=== PATIENT | male | born 1940 | race Caucasian/White ===

== ENCOUNTER 2016-08-05 09:49 | Inpatient (IN) | payer MEDICARE, OTHER ==
[~2016-08-05] VITALS: Ht 172.7 cm; Wt 99.8 kg
--- NOTE | 2016-08-05 10:19 | NUR ---
BIB FOR RECTAL PAIN, PATIENT WAS ON CHEMO 4 WEEKS PRIOR TO ARRIVAL, PATIENT IS VERBALLY RESPONSIVE, DENIES BLEEDING, ABLE TO AMBULATE TO BED, PLACED ON MONITOR, MD AT BEDSIDE UPON ARRIVAL, WILL CONTINUE TO MONITOR CLOSELY.
--- NOTE | 2016-08-05 10:27 | NUR ---
RAC #20 IV ACCESS BLOOD SAMPLE COLLECTED SENT TO LAB
[2016-08-05] MEDS ORDERED: CEFTRIAXONE 1GM BAG (ER ONLY) 50 ML IV ONE (10:28)
[2016-08-05] MEDS ORDERED: IV SET PRIMARY PUMP SET 1 EA INFUS.SET MC ONE ×2 (10:28→14:36)
[2016-08-05] MEDS ORDERED: ONDANSETRON HCL/PF 4 MG/2 ML VIAL ONE (10:28)
[2016-08-05] MEDS ORDERED: MORPHINE SULFATE INJ 4 MG/ML DISP.SYRIN ONE (10:28)
[2016-08-05] MEDS ORDERED: IV NS 0.9% 1,000 ML ONE ×2 (10:28→17:07)
[2016-08-05] MEDS ORDERED: ONDANSETRON HCL/PF 4 MG/2 ML VIAL IVP ONE (10:30)
[2016-08-05] MEDS ORDERED: IV NS 0.9% 1,000 ML BAG IV ONE (10:30)
[2016-08-05] MEDS ORDERED: MORPHINE SULFATE INJ 2 MG/ML DISP.SYRIN IV ONE (10:30)
[2016-08-05] MEDS ORDERED: CEFTRIAXONE 1GM BAG (ER ONLY) 1 GM/50 ML PIGGYBACK IV ONE (10:30)
[2016-08-05 10:37] LABS: CALCIUM, SERUM 8.2 mg/dL (8.5-10.1); CREATININE 1.1 mg/dL (0.6-1.3); POTASSIUM 3.9 mmol/L (3.5-5.1)
[2016-08-05 10:41] LABS: INR 1.1 (0.87-1.13); PROTHROMBIN TIME 11.5 SECS (9.5-12.7)
[2016-08-05 10:42] LABS: BASOPHILS % (AUTO) 0.2 % (0.0-2.0); LYMPHOCYTES # (AUTO) 0.5 /CMM (0.8-4.8); MEAN CORPUSCULAR HEMOGLOBIN 30 PG (26.0-33.0); RED BLOOD CELL COUNT(AUTO) 2.12 MIL/uL (4.5-6.0)
[2016-08-05 10:44] LABS: LYMPHOCYTES % (AUTO) 54.5 % (20.0-44.0); MEAN CORPUSCULAR HGB CONC 34 g/dl (31.0-36.0); MEAN CORPUSCULAR VOLUME 89 fL (80-96); MONOCYTES % (AUTO) 4.4 % (2.0-12.0); NEUTROPHILS # (AUTO) 0.4 /CMM (1.8-8.9); NEUTROPHILS % (AUTO) 40.9 % (43.0-81.0); PLATELET COUNT (AUTO) 103 /CMM (150-450); RDW COEFFICIENT OF VARIATION 16.4 (11.5-15.0)
--- NOTE | 2016-08-05 10:44 | NUR ---
CALLED PHARMACY FOR VANCO IV MEDS
--- NOTE | 2016-08-05 10:44 | NUR ---
XRAY AT BEDSIDE
[2016-08-05 10:49] LABS: HEMATOCRIT 19 % (39-51); HEMOGLOBIN 6.4 g/dL (13.5-17.5); WHITE BLOOD COUNT (AUTO) 0.9 K/uL (4.3-11.0)
--- NOTE | 2016-08-05 10:50 | NUR ---
URINE SAMPLE COLLECTED SENT TO LAB
[2016-08-05 10:54] LABS: APPEARANCE,URINE Clear (CLEAR); BILIRUBIN,URINE MODERATE (NEGATIVE); BLOOD, URINE Negative Ery/uL (NEGATIVE); COLOR,URINE Amber (YELLOW); KETONES,URINE Trace (NEGATIVE); LEUKOCYTE ESTERASE ,URINE Trace (NEGATIVE); NITRITE, URINE Positive (NEGATIVE); PH,URINE 5.5 (5.0-8.0); PROTEIN,URINE 100 mg/dl (NEGATIVE); UGLUCOSE Negative (NEGATIVE)
[2016-08-05 11:09] LABS: LYMPHOCYTES % (MANUAL) 51 % (16-48); MONOCYTES % (MANUAL) 4 % (0-11.0); NEUTROPHILS % (MANUAL) 45 (42-76); PLATELET ESTIMATE DECREASED
[2016-08-05 11:10] LABS: ADD URINE CULTURE NO; BACTERIA,URINE 1+ /HPF (None Seen); RBC,URINE 0-2 /HPF (0-2); SQUAMOUS EPITHELIAL CELL,UR Rare /HPF (None Seen)
[2016-08-05] MEDS ORDERED: FEE PK DOSING 1 MIN EA MC ONE ×2 (11:12→13:51)
[2016-08-05] MEDS ORDERED: VANCOMYCIN 1 GM in IV D5W 250 ML IV ONE (11:30)
[2016-08-05] MEDS ORDERED: VANCOMYCIN 1 GM in IV D5W 250 ML IV SCH ×2 (11:30→23:00)
--- NOTE | 2016-08-05 11:49 | NUR ---
DUPLICATE ORDER ON KELLYO
[2016-08-05] MEDS ORDERED: DEFEROXAMINE IV ONE (12:00)
[2016-08-05] MEDS ORDERED: FILGRASTIM (300 MCG) 300 MCG/ML VIAL SQ ONE (12:00)
[2016-08-05] MEDS ORDERED: D5W IV ONE (12:00)
--- NOTE | 2016-08-05 12:00 | NUR ---
PAGED DR CALLAHAN RAMP MANAGER PANEL.
--- NOTE | 2016-08-05 12:05 | NUR ---
CALLED NURSING DAIRY MANAGER REQUESTING RORY BED PER DR LEBLANC
[2016-08-05] MEDS ORDERED: FESO8TAB PO (12:30)
[2016-08-05] MEDS ORDERED: MORPHINE SULFATE INJ 2 MG/ML DISP.SYRIN IV PRN (12:30)
[2016-08-05] MEDS ORDERED: Z GUARD REMEDY 2 OZ OINT TP PRN (12:30)
[2016-08-05] MEDS ORDERED: CALC500T3 PO (12:30)
[2016-08-05] MEDS ORDERED: MAG HYDROX/AL HYDROX/SIMETH 30 ML UDC PO PRN (12:30)
[2016-08-05] MEDS ORDERED: MAGNESIUM HYDROXIDE 30 ML UDC PO PRN (12:30)
[2016-08-05] MEDS ORDERED: ZOLPIDEM TARTRATE 5 MG TABLET PO PRN (12:30)
[2016-08-05] MEDS ORDERED: CELE200C PO (12:30)
[2016-08-05] MEDS ORDERED: TEMA30CA PO (12:30)
[2016-08-05] MEDS ORDERED: OLOP2.5D5 EACHEYE (12:30)
[2016-08-05] MEDS ORDERED: ONDA8TAB6 PO (12:30)
[2016-08-05] MEDS ORDERED: OMEP20TA68 PO (12:30)
[2016-08-05] MEDS ORDERED: ACET-2605 PO (12:30)
[2016-08-05] MEDS ORDERED: ALEN70TA3 PO (12:30)
[2016-08-05] MEDS ORDERED: ONDANSETRON HCL/PF 4 MG/2 ML VIAL IVP PRN (12:30)
[2016-08-05] MEDS ORDERED: MONT10TA22 PO (12:30)
[2016-08-05] MEDS ORDERED: DOCU250C75 PO (12:30)
--- NOTE | 2016-08-05 13:14 | NUR ---
REPORT GIVEN TO THONY CHAVEZ RORY BED 108
[2016-08-05] MEDS ORDERED: CEFEPIME 1 GM in IV D5W 50 ML IV SCH (13:30)
[2016-08-05] MEDS ORDERED: SECONDARY IV SET 1 EA INFUS.SET MC ONE (14:36)
[2016-08-05] MEDS ORDERED: IV NS 0.9% 250 ML IV ONE ×2 (14:36→22:32)
[2016-08-05] MEDS: TBO-FILGRASTIM 480 MCG/0.8 ML ML SQ SCH (14:41)
[2016-08-05] MEDS: CEFEPIME 2 GM in IV D5W 100 ML IV SCH ×2 (14:42→20:25)
--- NOTE | 2016-08-05 15:00 | NUR ---
RN NOTES REMINDED TO BRING HOME MEDS AND EYE DROPS
[2016-08-05] MEDS: ENOXAPARIN SODIUM 40 MG/0.4 ML DISP.SYRIN SQ SCH (15:16)
--- NOTE | 2016-08-05 15:19 | NUR ---
RN NOTES ADMITTED A 75Y/O M FROM ER. TRANSPOPRTED VIA SRETCHER ACCOMPANIED BY RN. PT IS AWAKE ALERT ORIENTED X3 , URDU SPEAKING. TELEBOX ATTACHED, SR HR 71 THUM[address] AV BLOCK. NOTED SR ON TELE MONITOR. VS CHECKED AND RECORDED. BODY CHECK DONE, NO MAJOR SKIN ISSUES NOTED. DENIES PAIN/DISCOMFORT AT THIS TIME. AT BEDSIDE. ORIENTED TO UNIT AND CALL LIGHT USE, SAFETY MAINTAINED. NEEDS ATTENDED, CALL LIGHT WITHIN REACH
--- NOTE | 2016-08-05 15:24 | NUR ---
RN NOTES SPOKE WITH DR CALLAHAN, REPORTED PT HEMOGLOBIN 6.4, PER MD GIVE 2UNITS PRBC. DR WILHELM AWARE.
[2016-08-05 16:00] VITALS: BP 123/43
[2016-08-05] MEDS: CALCIUM CARBONATE (1250) 500 MG TABLET PO SCH (17:03)
[2016-08-05] MEDS: IV NS 0.9% 1,000 ML IV PRN (17:13)
--- NOTE | 2016-08-05 17:49 | NUR ---
RN NOTES CALLED THE BLOOD BANK TO FOLLOW UP, SECOND ABO TEST STILL NEEDS TO BE VERIFIED.
--- NOTE | 2016-08-05 19:25 | NUR ---
RN CLOSING NOTES ENDORSED TO THE NIGHT NURSE, PT IS IN STABLE CONDITION, NO DISTRESS NOTED. PT IS IN BED, HOB ELEVATED 35 DEGREES. IV SITE PATENT, NO S/SX OF INFECTION/INFLITRATION.SAFETY MEASURES MAINTAINED CALL LIGHTS WITHIN REACHED.
[2016-08-05] MEDS: ACETAMINOPHEN 325 MG TABLET PO PRN (19:50)
[2016-08-05 20:00] VITALS: BP 126/69
[2016-08-05] MEDS: VANCOMYCIN 1 GM in IV D5W 250 ML IV SCH (22:00)
[2016-08-05] MEDS ORDERED: BLOOD IV SET 1 EA INFUS.SET MC ONE (22:32)
[2016-08-05] MEDS ORDERED: diphenhydrAMINE HCL 50 MG/ML VIAL IV ONE (23:00)
[2016-08-05 23:59] VITALS: BP 131/70
[2016-08-06] VITALS (25 sets, daily range): BP systolic 117–153; BP diastolic 49–82
--- NOTE | 2016-08-06 00:10 | NUR ---
RN NOTES: RECEIVED PT FROM LAQUITA, FOR CONTINUITY OF CARE. RECEIVED PT ASLEEP IN BED, NO SOB, A/O X3, ON NEUTROPENIC PRECAUTION. SR ON TELE. PT DENIES PAIN. IV SITE ON R/AC G20 RUNNING WITH IV NS @75ML/HR WITH RIGHT PORTACATH FLUSHES WELL INTACT AND PATENT. STARTED BLOOD TRANSFUSION WITH VITAL SIGNS TEMP: 98.4 PULSE: 76 RES: 20 B/P 131/70 SAT 98%. KEPT PT CLEAN AND DRY, CALL LIGHT WITHIN REACH, WILL CONTINUE TO MONITOR.
--- NOTE | 2016-08-06 03:30 | NUR ---
RN NOTES PT TOLERATED FIRST UNIT OF BLOOD TRANSFUSION WITH VS STABLE. NO SOB OR ACUTE RESP DISTRESS. PT ASLEEP AT THIS TIME. STARTED SECOND (2) UNIT OF PRBC VS TAKEN TEMP 98.9 RESP 18 PULSE 87 BP 151/72 SATING 95% WILL CONTINUE TO MONITOR.
[2016-08-06] MEDS: HYDROCODONE/APAP 5/325MG 1 EACH TABLET PO PRN ×2 (03:48→20:28)
--- NOTE | 2016-08-06 04:30 | NUR ---
RN NOTES NOTED PT TEMP WAS 100.6 RECHECKED AFTER 15 MINUTES GOT TEMP 100.2. NO SOB OR ACUTE RESP DISTRESS PT IS TRYING TO SLEEP AT THIS TIME DENIES PAIN. AMBULATE AND ASSIST TO THE BATHROOM. STOP TRANSFUSION AND REPORTED TO MD ABOUT TEMP. WAITING FOR THE CALL BACK
--- NOTE | 2016-08-06 04:40 | NUR ---
RN NOTES PT TOLERATED FIRST UNIT OF BLOOD TRANSFUSION WITH VS STABLE. STARTED SECOND (2) UNIT OF PRBC VS TAKEN TEMP 98.9 RESP 18 PULSE 87 BP 151/72 SATING 95% WILL CONTINUE TO MONITOR. Addendum: 08/06/16 at 0526 by ELIUD DE ANDA RN LATE ENTRY ERROR TIME.... THIS NOTE IS FOR 03:30 STARTED SECOND UNIT OF BT...
--- NOTE | 2016-08-06 04:44 | NUR ---
RN NOTES CALLED DR CISNEROS AND REPORT PT TEMPERATURE 100.6 RECHECKED 100.2 STOP TRANSFUSION AND WAITING FOR HIM TO CALL BACK
--- NOTE | 2016-08-06 04:50 | NUR ---
RN NOTES RECEIVED AN ORDER FROM DR. CISNEROS TO STOP THE BT AND GIVE TYLENOL 650 MGAND BENADRYL 50 MG X 1 AND CONTINUE BT AFTER 30 MINUTES. NOTED AND ACKNOWLEDGE ORDER.
[2016-08-06] MEDS ORDERED: diphenhydrAMINE HCL 50 MG/ML VIAL IV ONE (05:00)
[2016-08-06] MEDS ORDERED: diphenhydrAMINE HCL 50 MG/ML VIAL ONE (05:03)
[2016-08-06] MEDS: ACETAMINOPHEN 325 MG TABLET PO PRN (05:06)
[2016-08-06] MEDS: CEFEPIME 2 GM in IV D5W 100 ML IV SCH ×3 (05:12→20:23)
[2016-08-06] MEDS ORDERED: BLOOD IV SET 1 EA INFUS.SET MC ONE ×2 (05:40→15:39)
--- NOTE | 2016-08-06 05:52 | NUR ---
RN NOTES AFTER 30 MINUTES GIVING TYLENOL AND BENADRY PT VS TAKEN TEMP 98 RESP 18 PULSE 72 BP 130/65 SATING 95% PT ASLEEP AT THIS TIME. NO SOB OR ANY DISTRESS. RESUME REMAINING BLOOD TRANSFUSION. NO BLOOD CLOTS VERIFIED BY RN JANIE WILL CONTINUE TO MONITOR PT .
--- NOTE | 2016-08-06 07:04 | NUR ---
RN NOTES PT ASLEEP WELL AT THIS TIME . REMAINED AOX 3. BT FINISHED TOLERATED WELL. LAST VS TAKEN AFTER BT TEMP 97.6 RESP 18 PULSE 68 BP 127/62 SATING 98%. RESP EVEN AND UNLABORED. DENIES PAIN. ALL DUE MEDICINE TOLERATED WELL. KEPT PT CELAN AND COMFORTABLE IN BED. WILL ENDORSED CONTIUITY OF CARE TO AM NURSE.
--- NOTE | 2016-08-06 07:30 | NUR ---
initial note patient resting in bed A+Ox3, daughter at bed side translating. patient surinamese speaking. no pain noted. temp wnl. RAC IV aptent, no complications. R reji-cath present, clean, no complications. pending medical records from [facility]. discussed plan of care. neutropenic precautions strictly observed. call light in reach
[2016-08-06 07:56] LABS: BASOPHILS % (AUTO) 0.1 % (0.0-2.0); LYMPHOCYTES # (AUTO) 0.6 /CMM (0.8-4.8); LYMPHOCYTES % (AUTO) 44.9 % (20.0-44.0); MEAN CORPUSCULAR HEMOGLOBIN 31 PG (26.0-33.0); MEAN CORPUSCULAR HGB CONC 35 g/dl (31.0-36.0); MEAN CORPUSCULAR VOLUME 89 fL (80-96); MONOCYTES % (AUTO) 1.9 % (2.0-12.0); NEUTROPHILS # (AUTO) 0.7 /CMM (1.8-8.9); NEUTROPHILS % (AUTO) 53.1 % (43.0-81.0); PLATELET COUNT (AUTO) 75 /CMM (150-450); RDW COEFFICIENT OF VARIATION 15.5 (11.5-15.0); RED BLOOD CELL COUNT(AUTO) 2.29 MIL/uL (4.5-6.0)
[2016-08-06 07:59] LABS: ALBUMIN 2.7 g/dL (3.4-5.0); BILIRUBIN,TOTAL 2.5 mg/dL (0.2-1.0); CALCIUM, SERUM 8.1 mg/dL (8.5-10.1); CREATININE 0.9 mg/dL (0.6-1.3); MAGNESIUM 1.9 mg/dL (1.8-2.4); PHOSPHORUS 2.3 mg/dL (2.5-4.9); POTASSIUM 3.7 mmol/L (3.5-5.1); TOTAL PROTEIN, SERUM 7.1 g/dL (6.4-8.2)
[2016-08-06] MEDS: PANTOPRAZOLE 40 MG TABLET.DR PO SCH (08:34)
[2016-08-06] MEDS: MONTELUKAST SODIUM (10MG) 10 MG TABLET PO SCH (08:34)
[2016-08-06] MEDS: CALCIUM CARBONATE (1250) 500 MG TABLET PO SCH ×2 (08:34→16:39)
[2016-08-06] MEDS: DOCUSATE SODIUM 250 MG CAPSULE PO SCH (08:35)
[2016-08-06] MEDS: ENOXAPARIN SODIUM 40 MG/0.4 ML DISP.SYRIN SQ SCH (08:36)
[2016-08-06] MEDS ORDERED: Medication Not On Formulary EA (Fesoterodine Fumarate (Toviaz) 8 MG) PO SCH (09:00)
[2016-08-06 09:01] LABS: WHITE BLOOD COUNT (AUTO) 1.3 K/uL (4.3-11.0)
[2016-08-06 09:02] LABS: HEMATOCRIT 20 % (39-51)
[2016-08-06] MEDS ORDERED: SECONDARY IV SET 1 EA INFUS.SET MC ONE (09:18)
--- NOTE | 2016-08-06 09:30 | NUR ---
non admin notes cleared emar for up to date administrating schedule. unknown if meds administered. pt currently receiving IV fluids, no s/s of allergic reaction at this time.
[2016-08-06] MEDS ORDERED: D5W IV ONE (10:00)
[2016-08-06] MEDS ORDERED: DEFEROXAMINE IV ONE (10:00)
[2016-08-06 11:05] LABS: IRON, SERUM 136 ug/dl (50-175); TOTAL IRON BINDING CAPACITY 132 ug/dl (250-450)
[2016-08-06] MEDS: VANCOMYCIN 1 GM in IV D5W 250 ML IV SCH ×2 (11:16→23:27)
[2016-08-06 12:20] LABS: BAND % (MANUAL) 4 % (0.0-5.0); LYMPHOCYTES % (MANUAL) 28 % (16-48); MONOCYTES % (MANUAL) 10 % (0-11.0); NEUTROPHILS % (MANUAL) 58 (42-76); PLATELET ESTIMATE DECREASED
--- NOTE | 2016-08-06 15:13 | NUR ---
RN NOTES Rubin AC GAVE TELEPHONE ORDER FOR TRANSFUSION 1 UNIT PRBC.
[2016-08-06] MEDS ORDERED: IV NS 0.9% 250 ML IV ONE ×2 (15:39→16:11)
[2016-08-06] MEDS ORDERED: K PHOS NEUTRAL 250 MG TABLET PO ONE (16:00)
[2016-08-06] MEDS: TBO-FILGRASTIM 480 MCG/0.8 ML ML SQ SCH (18:01)
--- NOTE | 2016-08-06 18:08 | NUR ---
TRANSFUSION NOTE TOLERATED WELL. NO ADVERSE REACTION. NO CHANGE OF CONDITION. INFORMED PATIENT NEED FOR STOOL SAMPLE. ALL MATERIAL AT BED SIDE, INFORMED TO CALL NURSE FOR COLLECTION.
[2016-08-06] MEDS ORDERED: HYDROCORTISONE ACETATE 25 MG/SUPP.RECT SUPP.RECT RC PRN (18:30)
--- NOTE | 2016-08-06 18:39 | NUR ---
DR. YONG BABB GAVE TELEPHONE ORDER TO D/C JHON, CONTINUE PAZEO EYE gtt, INCREASE AMBIEN TO 10 MG PRN QHS AND ANUSOL 25MG SUPP Q12PRN. INFORMED FAMILY TO BRING EYE DROPS. PATIENT ANF FAMILY MADE AWARE OF ALL NEW ORDERS. PT. REFUSING SUPPOSITORY AT THIS TIME
--- NOTE | 2016-08-06 19:26 | NUR ---
CLOSING NOTES HANDED OFF REPORT. LEFT PATIENT IN STABLE CONDITION. VERBALIZING NEEDS. BREATHING WNL, DENIES PAIN. REFUSING SUPPOSITORY AT THIS TIME. CALL LIGHT IN REACH.
[2016-08-06] MEDS: IV NS 0.9% 1,000 ML IV PRN (20:23)
[2016-08-06] MEDS ORDERED: ZOLPIDEM TARTRATE 5 MG TABLET PO PRN (22:00)
[2016-08-07] VITALS: BP 116/59
[2016-08-07 04:00] VITALS: BP 121/60
[2016-08-07] MEDS: CEFEPIME 2 GM in IV D5W 100 ML IV SCH ×2 (05:34→13:29)
[2016-08-07 06:55] LABS: BASOPHILS % (AUTO) 0.3 % (0.0-2.0); EOSINOPHILS % (AUTO) 0.2 % (0.0-6.0); HEMATOCRIT 21 % (39-51); LYMPHOCYTES # (AUTO) 0.5 /CMM (0.8-4.8); LYMPHOCYTES % (AUTO) 37.5 % (20.0-44.0); MEAN CORPUSCULAR HEMOGLOBIN 31 PG (26.0-33.0); MEAN CORPUSCULAR HGB CONC 34 g/dl (31.0-36.0); MEAN CORPUSCULAR VOLUME 90 fL (80-96); MONOCYTES # (AUTO) 0.1 /CMM (0.1-1.30); MONOCYTES % (AUTO) 3.8 % (2.0-12.0); NEUTROPHILS # (AUTO) 0.8 /CMM (1.8-8.9); NEUTROPHILS % (AUTO) 58.2 % (43.0-81.0); PLATELET COUNT (AUTO) 58 /CMM (150-450); RDW COEFFICIENT OF VARIATION 16.7 (11.5-15.0); RED BLOOD CELL COUNT(AUTO) 2.29 MIL/uL (4.5-6.0)
[2016-08-07 07:09] LABS: CALCIUM, SERUM 8.2 mg/dL (8.5-10.1); CREATININE 0.9 mg/dL (0.6-1.3); PHOSPHORUS 2.1 mg/dL (2.5-4.9); POTASSIUM 3.4 mmol/L (3.5-5.1)
[2016-08-07 07:10] LABS: WHITE BLOOD COUNT (AUTO) 1.4 K/uL (4.3-11.0)
--- NOTE | 2016-08-07 07:22 | NUR ---
HISTORIAN RESEARCH ASSISTANT; CRITICAL LAB RESULTS RECEIVED JUST NOW, ENDORSED TO NEXT SHIFT ERWIN/RN TO FOLLOW UP.
[2016-08-07] MEDS ORDERED: ALENDRONATE 70 MG TABLET PO SCH (07:30)
--- NOTE | 2016-08-07 07:30 | NUR ---
RN NOTES RECEIVED PATIENT IN BED ALERT, AWAKE, ORIENTED X 3 WITH BREATHING NORMAL, EVEN AND UNLABORED. NO SOB NOTED. ON ROOM AIR, SATURATING WELL. NO ACUTE DISTRESS NOTED. TELE MONITOR REVEALS SR WITH 1 DEGREE AV BLOCK, HR=80. IV RAC 20G IS PATENT AND INTACT, RUNNING IVF PER ORDER. KEPT CLEAN, DRY AND COMFORTABLE. ALL NEEDS ATTENDED. SAFETY MEASURE OBSERVED. CALL LIGHT WITH IN REACH. WILL CONT TO MONITOR.
[2016-08-07 08:00] VITALS: BP 153/78
[2016-08-07] MEDS: PANTOPRAZOLE 40 MG TABLET.DR PO SCH (08:18)
[2016-08-07] MEDS: MONTELUKAST SODIUM (10MG) 10 MG TABLET PO SCH (08:30)
[2016-08-07] MEDS: CALCIUM CARBONATE (1250) 500 MG TABLET PO SCH (08:30)
[2016-08-07] MEDS: DOCUSATE SODIUM 250 MG CAPSULE PO SCH (08:30)
[2016-08-07] MEDS: ENOXAPARIN SODIUM 40 MG/0.4 ML DISP.SYRIN SQ SCH (09:00)
--- NOTE | 2016-08-07 09:00 | NUR ---
RN NOTES CALLED DR BABB AND MADE AWARE THAT PATIENT PLATELET COUNT IS 58L AND WBC IS 1.4. RECEIVED ORDER TO HOLD LOVENOX. ORDER NOTED AND CARRIED OUT. WILL CONT TO MONITOR.
[2016-08-07 09:17] LABS: ANISOCYTOSIS 1+; BAND % (MANUAL) 3 % (0.0-5.0); LYMPHOCYTES % (MANUAL) 43 % (16-48); MONOCYTES % (MANUAL) 6 % (0-11.0); NEUTROPHILS % (MANUAL) 48 (42-76); PLATELET ESTIMATE DECREASED
[2016-08-07] MEDS: VANCOMYCIN 1 GM in IV D5W 250 ML IV SCH (11:07)
[2016-08-07 12:00] VITALS: BP 152/82
[2016-08-07] MEDS ORDERED: POTASSIUM CHLORIDE 20 MEQ TAB.PRT.SR PO SCH (12:00)
[2016-08-07] MEDS ORDERED: POTASSIUM PHOSPHATE MM 15 MMOL in IV D5W 250 ML IV SCH (12:30)
--- NOTE | 2016-08-07 12:30 | NUR ---
RN NOTES PATIENT IS REQUESTING FOR DISCHARGE. RECEIVED ORDER FROM DR BABB TO F/U WITH DR WILHELM. ORDER NOTED AND CARRIED OUT. WILL CONT TO MONITOR.
[2016-08-07] MEDS ORDERED: POTASSIUM PHOSPHATE MM 7.5 MMOL in IV D5W 100 ML IV SCH (13:00)
[2016-08-07] MEDS ORDERED: SECONDARY IV SET 1 EA INFUS.SET MC ONE (13:49)
[2016-08-07] MEDS: TBO-FILGRASTIM 480 MCG/0.8 ML ML SQ SCH (15:09)
--- NOTE | 2016-08-07 15:50 | NUR ---
RN NOTES PATIENT LEFT AMA IN STABLE CONDITION WITH BREATHING NORMAL, EVEN AND UNLABORED. NO SOB NOTED. DENIES ANY PAIN OR DISCOMFORT. NO ACUTE DISTRESS NOTED. RISK AND BENEFITS EXPLAINED BUT STILL WANNA LEAVE AMA. PITO AT BED SIDE. INSTRUCTED TO GO BACK ER IF SYMPTOMS PERSIST. CHARGE NURSE MERE MADE AWARE. DR WILHELM MADE AWARE. INCIDENT REPORT DONE ( [id number])
[2016-08-07] MEDS ORDERED: OLOPATADINE HCL 0.1% OPHTH BOTTLE EACHEYE SCH (17:00)
[2016-08-07] MEDS ORDERED: VANCOMYCIN 1.25 GM in IV D5W 500 ML IV SCH (21:00)
[2016-08-08] MEDS ORDERED: ALENDRONATE 70 MG TABLET PO SCH (07:30)
[2016-08-08 13:30] LABS: *SPE A/G RATIO 0.8 (0.7-1.7); *SPE ALBUMIN 2.9 g/dL (2.9-4.4); *SPE ALPHA-1-GLOBULIN 0.3 g/dL (0.0-0.4); *SPE ALPHA-2-GLOBULIN 0.6 g/dL (0.4-1.0); *SPE BETA GLOBULIN 0.8 g/dL (0.7-1.3); *SPE GLOBULIN, TOTAL 3.5 g/dL (2.2-3.9); *SPE M-SPIKE Not Observed g/dL (Not Observed); *SPE PROTEIN TOTAL 6.4 g/dL (6.0-8.5); *SPEGAMMA GLOBULIN 1.9 g/dL (0.4-1.8)
== END 2016-08-07 17:30 | disposition left against medical advice (07) | DRG 811 ==
LOC: ER 09:53 → TELE-TD 13:09
PROVIDERS: ADMIT Family Medicine; ATTEND Family Medicine
PROC: 30233N1 Transfusion of Nonautologous Red Blood Cells into Peripheral Vein, Percutaneous Approach (ICD-10-PCS; principal; 2016-08-06)
DX: D46.9 Myelodysplastic syndrome, unspecified (principal); D61.810 Antineoplastic chemotherapy induced pancytopenia; N39.0 Urinary tract infection, site not specified; E87.1 Hypo-osmolality and hyponatremia; T45.1X5A Adverse effect of antineoplastic and immunosuppressive drugs, initial encounter; R50.81 Fever presenting with conditions classified elsewhere; K21.9 Gastro-esophageal reflux disease without esophagitis; I10 Essential (primary) hypertension; M81.0 Age-related osteoporosis without current pathological fracture; E83.39 Other disorders of phosphorus metabolism
CPT/HCPCS: 36415; 71010-TC; 80048-TC; 80053-TC; 80202-TC; 81000-TC; 82272-TC; 83540-TC; 83605-TC; 83735-TC; 84100-TC; 84155; 84165; 85025-TC; 85730-TC; 86850-TC; 86921-TC; 87040-TC; 87081-TC; 87086-TC; A4606; J0692; J0696; J0895; J1200; J1442; J1446; J1650; J2270; J2405; J3370; J3490; J7030; J7050; J7060; P9016-BL; Z7610